=== PATIENT | male | born 1970 | race Two or more races ===

== ENCOUNTER 2024-05-11 00:46 | Emergency (ER) | payer SELFPAY ==
[~2024-05-11] VITALS: Ht 175.3 cm; Wt 90.0 kg
[2024-05-11 00:48] VITALS: TEMP 98
[2024-05-11 03:20] VITALS: BP 153/98; PULSE 91; RESP 18
== END 2024-05-11 04:24 | disposition home or self-care (01) ==
LOC: EMS 00:50 → EDBD 00:50 → EMS 04:24
DX: T40.411A Poisoning by fentanyl or fentanyl analogs, accidental (unintentional), initial encounter (principal); K43.9 Ventral hernia without obstruction or gangrene; F15.10 Other stimulant abuse, uncomplicated; Y92.89 Other specified places as the place of occurrence of the external cause
CPT/HCPCS: 71045; 93005; 99283; 99284

== ENCOUNTER 2025-05-01 13:13 | Emergency (ER) | payer SELFPAY ==
[~2025-05-01] VITALS: Ht 188 cm; Wt 91.0 kg
[~2025-05-01 13:13] MED LIST: SULF-261 PO
[2025-05-01 13:26] VITALS: BP 130/86; PULSE 86; RESP 18; TEMP 98; O2SAT 99
== END 2025-05-01 15:12 | disposition left against medical advice (07) ==
LOC: EMS 13:16
DX: L08.9 Local infection of the skin and subcutaneous tissue, unspecified (principal); Z53.21 Procedure and treatment not carried out due to patient leaving prior to being seen by health care provider
CPT/HCPCS: 82962; 99281